=== PATIENT | male | born 1965 | race Caucasian/White ===

== ENCOUNTER 2022-06-22 14:53 | Emergency (ER) | payer BC ==
[~2022-06-22] VITALS: Ht 175.3 cm; Wt 88.6 kg
[2022-06-22] VITALS (9 sets, daily range): BP systolic 105–126; BP diastolic 74–89
[2022-06-22 16:17] LABS: BASO% 0.4 % (0-3); EOS% 2.9 % (0-8); HEMATOCRIT 51.9 % (39.0-50.0); HEMOGLOBIN 17.7 g/dl (14.0-18.0); IMMATURE GRANULOCYTES 0.8 % (0.0-5.0); LYMPH% 19.2 % (15-41); MEAN CELL VOLUME 90.6 fL CALC (80.0-100.0); MEAN CORPUSCULAR HGB 30.9 pG CALC (26.0-32.0); MEAN CORPUSCULAR HGB CONC 34.1 g/dL CAL (32.0-36.0); MONO% 14.2 % (2-13); NEUT# 5.89 thou/uL (1.82-7.42); NEUT% 62.5 % (42-76); RED BLOOD COUNT 5.73 mill/uL (4.70-6.10); RED CELL DISTRI WIDTH 12.7 % (11.5-15.5)
[2022-06-22 16:33] LABS: ALBUMIN 3.6 g/dL (3.2-5.0); ALKALINE PHOSPHATASE 90 u/l (38-126); ANION GAP 11 (6-22 (CALC)); BILIRUBIN, TOTAL 0.4 mg/dL (0.2-1.3); BUN 18 mg/dL (9-20); BUN/CREATININE RATIO 17 (12-20 (CALC)); CARBON DIOXIDE 28 mmol/l (22-30); CHLORIDE 100 mmol/l (95-108); CREATININE 1.1 mg/dL (0.7-1.3); GFR FOR AFR.AMER. > 60 ML/MIN (>=60 (CALC)); GFR OTHER RACES > 60 ML/MIN (>=60 (CALC)); POTASSIUM 3.4 mmol/l (3.5-5.1); SGOT/AST 54 u/l (17-59); SODIUM 136 mmol/l (137-146); TOTAL PROTEIN 6.5 g/dL (6.3-8.2)
[2022-06-22] MEDS ORDERED: VANCOMYCIN HCL125 M1 PO ×2 (18:14→19:37)
== END 2022-06-22 18:42 | disposition home or self-care (01) | DRG 603 ==
LOC: ED 14:53
PROVIDERS: Nurse Practitioner
DX: L03.031 Cellulitis of right toe (principal)

== ENCOUNTER 2022-06-27 08:51 | Emergency (ER) | payer BC ==
[~2022-06-27] VITALS: Ht 175.3 cm; Wt 88.4 kg
[~2022-06-27 08:51] MED LIST: VANCOMYCIN HCL125 M1 PO
[2022-06-27 09:10] VITALS: BP 119/81
[2022-06-27] MEDS ORDERED: CEFDINIR300 MG PO ×2 (09:27→13:08)
[2022-06-27] MEDS ORDERED: BACTRIM DS1 TAB PO (09:27)
[2022-06-27 09:30] VITALS: BP 118/80
[2022-06-27 09:34] VITALS: BP 118/80
== END 2022-06-27 09:52 | disposition home or self-care (01) | DRG 603 ==
LOC: ED 08:51
DX: L03.031 Cellulitis of right toe (principal)